=== PATIENT | male | born 1985 | race Two or more races ===

== ENCOUNTER 2025-06-06 10:08 | Emergency (ER) | payer BC ==
[~2025-06-06] VITALS: Ht 165.1 cm; Wt 86.2 kg
[2025-06-06 10:26] VITALS: TEMP 98.5
[2025-06-06 11:35] LABS: APPEARANCE,URINE CLEAR (CLEAR); BLOOD, URINE NEGATIVE Ery/uL (NEGATIVE); LEUKOCYTE ESTERASE ,URINE NEGATIVE (NEGATIVE); NITRITE, URINE NEGATIVE (NEGATIVE); UGLUCOSE NEGATIVE (NEGATIVE)
[2025-06-06] MEDS ORDERED: IBUP-1490 PO (11:52)
[2025-06-06 12:16] VITALS: BP 125/85; O2SAT 98
== END 2025-06-06 12:04 | disposition home or self-care (01) ==
LOC: ER 10:21
DX: R35.0 Frequency of micturition (principal); R30.0 Dysuria; N32.81 Overactive bladder; M10.9 Gout, unspecified
CPT/HCPCS: 76870-TC